=== PATIENT | male | born 1975 | race Caucasian/White ===

== ENCOUNTER 2016-10-07 23:59 | Emergency (ER) | payer SELFPAY ==
[~2016-10-07] VITALS: Ht 175.3 cm; Wt 70.2 kg
[2016-10-08] MEDS ORDERED: PERCOCET 5/31 TABLET PO (01:23)
[2016-10-08] MEDS ORDERED: KEFLEX500 MG PO (01:23)
[2016-10-08 01:42] VITALS: BP 126/62
[2016-10-08 02:04] LABS: POINT-OF-CARE METER ID UU13113702
== END 2016-10-08 01:51 | disposition home or self-care (01) ==
LOC: EME 23:59
PROVIDERS: Emergency Medicine
DX: L02.416 Cutaneous abscess of left lower limb (principal); L03.116 Cellulitis of left lower limb; S81.812A Laceration without foreign body, left lower leg, initial encounter; X78.8XXA Intentional self-harm by other sharp object, initial encounter; F17.200 Nicotine dependence, unspecified, uncomplicated
CPT/HCPCS: 82948; 87070; 87075; 87076; 87205; 99281; 99284

== ENCOUNTER 2016-12-01 20:37 | Emergency (ER) | payer SELFPAY ==
[~2016-12-01] VITALS: Ht 172.7 cm; Wt 73.8 kg
[~2016-12-01 20:37] MED LIST: KEFLEX500 MG PO; PERCOCET 5/31 TABLET PO
[2016-12-01 22:35] LABS: HEMATOCRIT 37.2 % (38.0-50.0); MCH 28.1 PG (29.0-34.0); MCHC 30.9 G/DL (30.0-36.0); MEAN PLAT.VOLUME 8.9 uM^3 (9.0-12.4); PLATELET COUNT 221 K/uL (156-360); RBC DIS.WIDTH-CV 13.8 % (11.8-14.6); RBC DIS.WIDTH-SD 46.7 % (39-53); RED BLOOD COUNT 4.09 M/uL (4.00-5.50); WHITE BLOOD COUNT 10.5 K/uL (4.1-10.2)
[2016-12-01 22:44] LABS: CHLORIDE 105 mEq/L (99-109); POTASSIUM 4.1 mEq/L (3.7-5.4); SODIUM 140 mEq/L (136-147)
[2016-12-01 22:45] LABS: GLUCOSE 98 mg/dL (70-99)
[2016-12-01 22:47] LABS: ANION GAP 5 MEQ/L (2-14)
[2016-12-01 22:49] LABS: GFR ESTIMATE (CALCULATED) > 59 mL/min/
[2016-12-01 22:50] LABS: UREA NITROGEN (BUN) 21 mg/dL (9-23)
[2016-12-01] MEDS ORDERED: CLINDAMYCIN HC300 MG PO (23:48)
[2016-12-01] MEDS ORDERED: NORCO 5/3251 TABLET PO (23:49)
[2016-12-01] MEDS ORDERED: MOTRIN600 MG PO (23:49)
[2016-12-02 00:22] VITALS: BP 122/64
== END 2016-12-02 00:24 | disposition home or self-care (01) ==
LOC: EME 20:37
PROVIDERS: Physician Assistant
PROC: 0H9LXZZ Drainage of Left Lower Leg Skin, External Approach (ICD-10-PCS; principal; 2016-12-01)
DX: L03.116 Cellulitis of left lower limb (principal); L02.416 Cutaneous abscess of left lower limb; F17.200 Nicotine dependence, unspecified, uncomplicated
CPT/HCPCS: 73590; 80048; 85027; 87070; 87075; 87076; 87077; 87147; 87186; 87205; 99281; 99284